=== PATIENT | male | born 1950 | race Caucasian/White ===

== ENCOUNTER 2016-08-16 09:18 | Emergency (ER) | payer BC ==
--- NOTE | 2016-08-16 09:27 | Emergency Department Record ---
History of Present Illness - General Chief Complaint: Chest Pain Stated Complaint: CHEST PAIN Time Seen by Provider: 08/16/16 09:26 Source: Patient Mode of Arrival: Ambulatory Limitations: No limitations - History of Present Illness Initial Comments: 65 yo male presents to ED with a CC of left sided chest discomfort that began approximately 8.5 hours ago. Patient denies fevers, chills, or cough symptoms. Patient denies calf pain or swelling. Patient describes his pain symptoms as a "pressure", and has been constant for 8.5 hours. Patient denies previous heart or lung problems, does report smoking history. MD Complaint: Chest pain Onset/Timin -: Hour(s) Pain Location: Left chest Pain Radiation: LUE Severity: Moderate Severity scale (1-10): 5 Quality: Other ("pressure") Consistency: Constant Improves With: Nothing Worsens With: Nothing Treatments Prior to Arrival: None - Related Data Home Medications Medication Instructions Recorded Confirmed Last Taken No Home Med [NO HOME MEDS] 07/17/14 08/16/16 Unknown Allergies Allergy/AdvReac Type Severity Reaction Status Date / Time No Known Drug Allergies Allergy Verified 07/17/14 23:51 Review of Systems Constitutional: Denies: Chills, Fever, Malaise, Night sweats Eyes: Denies: Eye discharge, Eye pain ENT: Denies: Congestion, Ear pain Respiratory: Denies: Cough, Dyspnea Cardiovascular: Reports: Chest pain. Denies: Dyspnea on exertion Endocrine: Denies: Fatigue, Heat or cold intolerance Gastrointestinal: Denies: Abdominal pain, Nausea, Vomiting Genitourinary: Denies: Incontinence, Retention Musculoskeletal: Denies: Arthralgia, Back pain, Gout, Joint swelling Skin: Denies: Bruising, Change in color Neurological: Denies: Abnormal gait, Confusion, Headache, Seizure Psychiatric: Denies: Anxiety Hematological/Lymphatic: Denies: Anemia, Blood Clots Past Medical History - SOCIAL HISTORY Smoking Status: Current every day smoker - RESPIRATORY Hx Respiratory Disorders: No - CARDIOVASCULAR Hx Cardio Disorders: Yes Hx Heart Attack: Yes Comment:: Murmur - NEURO Hx Neuro Disorders: No - GI Hx GI Disorders: No - Hx Genitourinary Disorders: No - ENDOCRINE Hx Endocrine Disorders: No - MUSCULOSKELETAL Hx Musculoskeletal Disorders: No - PSYCH Hx Psych Problems: No - HEMATOLOGY/ONCOLOGY Hx Hematology/Oncology Disorders: No Family Medical History Hx Heart Disease: Father Physical Exam - General General Appearance: Alert, Oriented x3, Cooperative, Moderate distress Limitations: No limitations - Head Head exam: Atraumatic, Normocephalic, Normal inspection Head exam detail: negative: Abrasion, Contusion, Randolph's sign, General tenderness, Hematoma, Laceration - Eye Eye exam: Normal appearance. negative: Conjunctival injection, Periorbital swelling, Periorbital tenderness, Scleral icterus - ENT Ear exam: negative: Auricular hematoma, Auricular trauma Nasal Exam: negative: Active bleeding, Discharge, Dried blood, Foreign body Mouth exam: negative: Drooling, Laceration, Muffled voice, Tongue elevation - Neck Neck exam: Normal inspection. negative: Meningismus, Tenderness - Respiratory Respiratory exam: Normal lung sounds bilaterally. negative: Rales, Respiratory distress, Rhonchi, Stridor - Cardiovascular Cardiovascular Exam: Regular rate, Normal rhythm, Normal heart sounds - GI/Abdominal GI/Abdominal exam: Soft. negative: Rebound, Rigid, Tenderness - Rectal Rectal exam: Deferred - exam: Deferred - Extremities Extremities exam: Normal inspection. negative: Calf tenderness, Pedal edema, Tenderness - Back Back exam: Denies: CVA tenderness (R), CVA tenderness (L) - Neurological Neurological exam: Alert, Normal gait, Oriented X3 - Psychiatric Psychiatric exam: Normal affect, Normal mood - Skin Skin exam: Normal color. negative: Abrasion Type of lesion: negative: abrasion Course - Reevaluation(s) Reevaluation #1: 08/16/16 09:26 EKG: NSR 58 Normal axis, IVCD T wave inversions I, AVL, V4-V6 No previous on record, [facility] EHR reviewed, no previous present. ASA and Nitro ordered for the patient's pain symptoms. 08/16/16 09:59 Reevaluation #2: 08/16/16 09:58 Previous EKG located, no T wave inversions in I, AVL, V4-V6 compared with today' s strip. Reevaluation #3: 08/16/16 10:08 EKG: NSR 56 Normal axis, IVCD T wave inversions I, AVL, V5, V6. Reevaluation #4: 08/16/16 10:31 Troponin resulted at >80, pain improved with Nitro. Will initiate heparin and transfer for cardiology intervention. Medical Decision Making - Lab Data Result diagrams: 08/16/16 09:32 08/16/16 09:32 Critical Care Time Critical Care Time: Yes Total Critical Care Time: 45 Critical Care Time: Diagnosis and treatment for NSTEMI, numerous EKGs compared with previous, heparin and nitro treatment, initiation of transfer for cardiology consultation. Disposition Disposition: Transfer Clinical Impression: NSTEMI (non-ST elevated myocardial infarction) Disposition: Acute Care Hospital Transfer Transfer To: [facility] Reason For Transfer: NSTEMI Accepting Physician: Omid Time Discussed w/Accepting Physician: 10:33 Condition: (2) Stable Forms: Patient Portal Access
[2016-08-16] MEDS ORDERED: ASPIRIN 81 MG CHEWABLE TABLET PO ONE (09:40)
[2016-08-16] MEDS ORDERED: NITROGLYCERIN 0.4MG SL TABLET #25 BTL SL ONE (09:41)
[2016-08-16 09:51] LABS: BASO % 0.4 % (0-6); EOS % 0.6 % (0-6); GRAN % 71.4 % (47-80); HEMATOCRIT 47.2 % (42.0-52.0); HEMOGLOBIN 15.7 gm/dl (14.0-18.0); LYMPH % 19.6 % (16-45); MEAN CELL VOLUME 89.9 fl (81-97); MEAN CORPUSCULAR HEMOGLOBIN 29.9 pg (27-33); MEAN CORPUSCULAR HGB CONC 33.3 g/dl (32-36); MEAN PLATELET VOLUME 9.1 fl (7.4-10.4); PLATELET COUNT 402 K/uL (130-400); RED BLOOD COUNT 5.25 M/uL (4.40-5.70); RED CELL DISTRIBUTION WIDTH 13.9 % (11.5-14.5); WHITE BLOOD COUNT W/O DIFF 11.2 K/uL (4.2-12.2)
[2016-08-16 10:07] LABS: ALB/GLOB RATIO 1.4 (1.1-1.8); ALBUMIN 4.2 gm/dL (3.5-5.0); ALKALINE PHOSPHATASE 44 U/L (38-126); ALT/SGPT 65 U/L (21-72); ANION GAP 4.2 (7-16); AST/SGOT 364 U/L (17-59); BILIRUBIN,TOTAL 0.73 mg/dL (0.2-1.3); BLOOD UREA NITROGEN 14 mg/dL (9-20); CARBON DIOXIDE 26.8 mmol/L (22-30); CREATININE 0.9 mg/dL (0.66-1.25); EST GLOMERULAR FILTRATION RATE > 60 ml/min; GLUCOSE,RANDOM 109 mg/dL (70-110); TOTAL PROTEIN 7.3 gm/dL (6.3-8.2)
[2016-08-16 10:16] LABS: CREATINE PHOSPHOKINASE 2841 U/L (55-170)
[2016-08-16] MEDS ORDERED: HEPARIN SODIUM 1000 UNIT/1 ML 10ML VIAL IVP ONE (10:33)
[2016-08-16] MEDS ORDERED: HEPARIN SODIUM/D5W 25,000 UNITS/500 ML BAG IV SCH (10:45)
[2016-08-16 11:02] LABS: INR 0.88
--- NOTE | 2016-08-19 12:31 | RADIOLOGY REPORT ---
EXAM: AP CHEST HISTORY: ACUTE LEFT SIDE CHEST PAIN, SMOKER. TECHNIQUE: AP view of the chest was obtained. Comparison: None. FINDINGS: Upper lobe lucency consistent with emphysema. The lungs are clear. The cardiac silhouette, diaphragm and osseous structures are unremarkable for age. IMPRESSION: EMPHYSEMA. NO ACUTE INTRATHORACIC PROCESS. JOB NUMBER: [id number] MTDD
== END 2016-08-16 11:11 | disposition short-term general hospital (02) ==
LOC: ER 09:18
DX: I21.4 Non-ST elevation (NSTEMI) myocardial infarction (principal); I25.2 Old myocardial infarction; F17.210 Nicotine dependence, cigarettes, uncomplicated
CPT/HCPCS: 71010; 80053; 82550; 82553; 84484; 85025; 85610; 85730; 93005; 93010; 96365; 96375; 99285